=== PATIENT | female | born 1935 | race Caucasian/White ===

== ENCOUNTER 2018-04-20 14:19 | Inpatient (IN) | payer MEDICARE ==
[~2018-04-20] VITALS: Ht 152.4 cm; Wt 76.7 kg
[~2018-04-20 14:19] MED LIST: ASPIRIN81 M1 PO; MOTRIN800 MG PO; SYNTHROID,LEVO75 MCG PO; ZESTRIL5 MG PO
[2018-04-20 14:21] VITALS: BP 123/43
[2018-04-20 14:50] LABS: BASO % 0.1 % (0.0-1.0); EOS % 0.6 % (1.0-4.0); HEMATOCRIT 38.5 % (37.0-47.0); HEMOGLOBIN 12.6 g/dl (12.0-16.0); LYMPH # 0.7 10*3/uL (1.3-4.4); LYMPH % 9.9 % (27.0-41.0); MEAN CELL VOLUME 100.3 fl (81.0-99.0); MEAN CORPUSCULAR HGB 32.8 pg (27.0-31.0); MEAN CORPUSCULAR HGB CONC 32.7 g/dl (33.0-37.0); MEAN PLATELET VOLUME 9.2 fl (9.6-12.3); MONO # 0.5 10*3/uL (0.1-1.0); MONO % 7.2 % (3.0-9.0); NEUT # 5.7 10*3/uL (2.3-7.9); NEUT % 81.8 % (47.0-73.0); PLATELET COUNT AUTOMATED 166 10*3/uL (130-400); RED BLOOD COUNT 3.84 10*6/uL (4.10-5.10); RED CELL DISTRI WIDTH 13.1 % (0-14.5)
[2018-04-20 14:59] LABS: ACT PARTIAL THROMBO TIME 25.1 SECONDS (20.8-31.5)
[2018-04-20 15:04] LABS: ALBUMIN 3.9 gm/dl (3.1-4.5); CREATININE 1.14 mg/dL (0.55-1.02); POTASSIUM 4.4 mmol/L (3.5-5.1); TOTAL PROTEIN 7.1 gm/dL (6.4-8.2)
[2018-04-20 15:23] VITALS: BP 131/65
[2018-04-20 15:27] LABS: BILIRUBIN NEGATIVE (NEGATIVE); BLOOD NEGATIVE (NEGATIVE); CLARITY SL CLOUDY (CLEAR); COLOR YELLOW (YELLOW); GLUCOSE NEGATIVE (NEGATIVE); KETONE TRACE (NEGATIVE); LEUKO ESTERASE NEGATIVE (NEGATIVE); NITRITE NEGATIVE (NEGATIVE); SPECIFIC GRAVITY 1.025 (1.005-1.030)
[2018-04-20 15:35] LABS: BACTERIA 2+
[2018-04-20 15:37] LABS: MUCOUS 1+
[2018-04-20 17:25] VITALS: BP 134/78
--- NOTE | 2018-04-20 17:30 | NUR ---
Time: 1729 A 82 year old FEMALE admitted to 5E under services of NAVJOT YOUNGBLOOD DO. Pt. arrived via stretcher from ER. Chief complaint: ABD PAIN , FALLS . LEWIS MARMOLEJO
[2018-04-20] MEDS ORDERED: ARICEPT10 M1 PO (18:31)
[2018-04-20] MEDS ORDERED: VITAMIN D31000 UNI1 PO (18:32)
[2018-04-20] MEDS ORDERED: VITAMIN B-121000 MC2 PO (18:33)
[2018-04-20] MEDS ORDERED: ATORVASTATIN CA20 M1 PO (18:33)
[2018-04-20] MEDS ORDERED: SYNTHROID137 MCG PO (18:34)
[2018-04-21] VITALS: BP 127/63
[2018-04-21 06:23] LABS: BASO % 0.2 % (0.0-1.0); EOS # 0.1 10*3/uL (0.0-0.4); EOS % 1.9 % (1.0-4.0); HEMATOCRIT 34.9 % (37.0-47.0); HEMOGLOBIN 11.2 g/dl (12.0-16.0); LYMPH % 17.1 % (27.0-41.0); MEAN CELL VOLUME 101.2 fl (81.0-99.0); MEAN CORPUSCULAR HGB 32.5 pg (27.0-31.0); MEAN CORPUSCULAR HGB CONC 32.1 g/dl (33.0-37.0); MONO # 0.5 10*3/uL (0.1-1.0); MONO % 8.5 % (3.0-9.0); NEUT # 4.2 10*3/uL (2.3-7.9); NEUT % 72.1 % (47.0-73.0); PLATELET COUNT AUTOMATED 142 10*3/uL (130-400); RED BLOOD COUNT 3.45 10*6/uL (4.10-5.10); RED CELL DISTRI WIDTH 13.2 % (0-14.5); WHITE BLOOD COUNT 5.8 10*3/uL (4.8-10.8)
[2018-04-21 06:48] LABS: BUN 22 mg/dl (7-24); CHLORIDE 104 mmol/L (98-107); FREE T4 1.21 ng/dl (0.76-1.46); SODIUM 139 mmol/L (136-145)
--- NOTE | 2018-04-21 07:57 | NUR ---
PHYSICAL THERAPY Nursing screen noted. PT orders also recieved. Thank you. Daniella Fuentes,PT
[2018-04-21 08:00] VITALS: BP 117/56
--- NOTE | 2018-04-21 08:04 | NUR ---
Nursing screen and Occupational Therapy referral received. Thank you. Nayana Ordoñez OTR/l
--- NOTE | 2018-04-21 08:20 | NUR ---
PT RESTING IN CHAIR. NO DISTRESS NOTED. WILL MONITOR CALL LIGHT WITHIN REACH
--- NOTE | 2018-04-21 09:00 | NUR ---
Machine Strap Buckler in to talk to patient. Patient states lives at home alone with family checking in on her. There are 0 steps in the home. Physician: Dr. Te Arthur Pharmacy: [facility] services: none Patient's level of ADLs: MINIMAL ASSIST Patient has working utilities: yes DME: cane when out in public, walker Follow-up physician's appointment after d/c: will be made by the hospitalist nurse director upon discharge Does patient want to access PORTAL?: no Discharge plan discussed with patient. She has a hard time finding her words. Will call to speak with family to discuss discharge planning. ZAHIRA MORENO
--- NOTE | 2018-04-21 10:30 | NUR ---
PHYSICAL THERAPY PAtient evaluated in 5, full evaluation to follow. Continue with PT as per plan of care with fall, mod (A) and decreased safety precautions. MAy require SNF. PAient is high complexity via chart review, tests and evaluation: 24453. Thank you for this referral. Daniella Doe,PT
--- NOTE | 2018-04-21 10:40 | NUR ---
Spoke to daughter who is at the bedside. Daughter request referral to [facility]. kit planner notified.
--- NOTE | 2018-04-21 10:58 | NUR ---
Occupational Therapy evaluation completed on 5 with full eval to follow. Precautions include fall risk; bed/ personal alarm, h/o falls, impaired cognition including; disorientation to time, impaired STM, difficulty following simple commands at times. Patient is moderate complexity level 68521 via chart review, testing and evaluation. Recommend OT per pOC and SNF to enable best ability to function. Thank you for this referral. Nayana Ordoñez OTR/l
[2018-04-21 12:00] VITALS: BP 132/55
--- NOTE | 2018-04-21 12:45 | NUR ---
PHYSICAL THERAPY Patient seen this pm 1:1 for therapy visit and was sitting up in her bedside chair upon therapist arrival. Patient demonstrated several bouts of increased confusion this session and was joined by a family member this afternoon for entire treatment. Patient transfers sit to stand Min/Mod A and ambulates with use of wh walker, 50'x 1, CGA/Min, demonstrating an even stride, slow terese and unsteady gait pattern during 180 degree turns with POOR walker safety / navigation. Patient returned to bedside chair and peformed several additional sit to stand transfers, Min A, requiring v/c for proper hand placement prior to sitting down to avoid "plopping". Patient remained in bedside chair with call light, tray table and body alarm for safety awaiting lunch. Will continue per POC as tolerated, total treatment time 16 minutes. Horace Gaytan, ONLINE MARKETING MANAGER
--- NOTE | 2018-04-21 12:59 | NUR ---
Patient requesting referral to [facility]; contacted facility and faxed referral; will fax PT eval when available. Waiting on review/acceptance.
--- NOTE | 2018-04-21 15:50 | NUR ---
OT NOTE PATIENT SEEN 1:1 OT THIS PM. PATIENT COMPLETED 29 MINUTES OF OT. SON PRESENT AT BEGINNING OF SESSION. PATIENT IDENTIFIED BY NAME AND DATE OF THIS DATE. PATIENT COMPLETED SIT TO STAND FROM RECLINER MIN A AMBULATING WITH USE FWW TO BATHROOM MOD A TO MANAGE W/C ESPECIALLY WITH TURNS. PATIENT REQUIRED TACTILE CUE PROPER HAND PLACEMENT WITH TRANSFERS. COMPLETED TOILET TRANSFER MOD A EDUCATION USE GRAB BAR. COMPLETED TOILETING MIN A WITH VERBAL CUES TO INITAITE USE TOILET PAPER FOR HYGIENE. COMPLETED GROOMING STANDING AT SINK BRUSH TEETH AND COMB HAIR MIN A WITH VERBAL CUES SEQUENCING TASK. PATIENT COMPLETED SIT TO STAND FROM ARM CHAIR MOD A. COMPLETED FUNCTIONAL AMBULATION USE FWW TO RECLINER MIN A WITH VERBAL AND TACTILE USE PROPER USE FWW WITH TURNS. COMPLETED STAND TOLERANCE ACTIVITY USE FWW SUPPORT REACHING FOR ITEMS AND PLACING ON TRAY CGA AND STAND TOLERANCE 5 MINUTES THIS DATE. PATIENT REQUIRES VERBAL CUES SAFETY SECONDARY DECREASE SAFETY AWARENESS. PATIENT SEATED IN RECLINER WITH CALL LIGHT WITHIN REACH. RIO ANDERSON
[2018-04-21 16:00] VITALS: BP 105/59
--- NOTE | 2018-04-21 16:04 | NUR ---
PT RESTING IN CHAIR NO DISTRESS NOTED. WILL MONITOR
[2018-04-21 20:00] VITALS: BP 128/60
--- NOTE | 2018-04-21 21:00 | NUR ---
SLEEPING, AWAKENS EASILY. RESPIRATIONS EASY. LUNGS DIMINISHED, CLEAR. PULSE OX 95% RA. +3 BLE EDEMA. CALL LIGHT WITHIN REACH. NO VOICED COMPLAINTS. BED ALARM MAINTAINED FOR SAFETY
--- NOTE | 2018-04-21 23:00 | NUR ---
SLEEPING. BED ALARM MAINTAINED
[2018-04-22] VITALS: BP 141/63
--- NOTE | 2018-04-22 | NUR ---
SLEEPING. NO DISTRESS NOTED. RESPIRATIONS EASY. VSS. CALL LIGHT WITHIN REACH. BED ALARM MAINTAINED FOR SAFETY
--- NOTE | 2018-04-22 06:00 | NUR ---
24 HR chart check completed.
--- NOTE | 2018-04-22 06:00 | NUR ---
SLEPT THROUGHOUT NIGHT WITH NO DISTRESS NOTED. RESPIRATIONS EASY. CALL LIGHT WITHIN REACH. BED ALARM MAINTAINED
[2018-04-22 08:00] VITALS: BP 140/56
--- NOTE | 2018-04-22 08:08 | NUR ---
PT eval faxed to [facility], patient needs one more night stay, waiting on review/acceptance.
--- NOTE | 2018-04-22 08:40 | NUR ---
PATIENT AWAKE AND ALERT SITTING IN CHAIR. PATIENT IS ABLE TO TELL ME HER FIRST NAME BUT NOT HER LAST NAME. PATIENT CAN NOT TELL ME HER DATE OF OR WHERE SHE IS. PATIENT DENIES ANY COMPLAINTS AT THIS TIME. RESPERS NORMAL. HRR. CHAIR ALARM INTACT. CALL BAHENA WITHIN REACH.
--- NOTE | 2018-04-22 09:00 | NUR ---
Thread Spooler in to see patient. No new needs or request at this time. When medically stable and accepted she will be discharged to [facility]. train planner following.
--- NOTE | 2018-04-22 09:35 | NUR ---
PHYSICAL THERAPY Patient seen this am 1:1 for therapy visit and was sitting up in bedside chair upon therapist arrival. Patient reports no new c/o's this morning and presented with a little bit of confusion. Patient performed seated B LE therex, all planes, 2 x 10, requiring v/c to complete full AROM. Patient also performed several sit to stand transfers with use of wh walker standing support, Min A x 1. Patient returned to bedside chair and remained with call light, tray table, telephone and body alarm. Will continue per POC as tolerated, total treatment time 16 minutes. Horace Gaytan, SENIOR BUYER PLANNER
--- NOTE | 2018-04-22 10:00 | NUR ---
NURSE AIDE MADE RN AWARE THAT PATIENT HAS REDDENED AREA IN BUTT CRACK AREA. BLACHABLE. CREAM APPLIED.
--- NOTE | 2018-04-22 10:35 | NUR ---
DR FISHER MADE AWARE THAT PATIENT HAS REDDENED AREA ON BUTT CRACK THAT IS BLACHABLE. OK TO APPLY HYRDAGEL TO AREA.
--- NOTE | 2018-04-22 10:48 | NUR ---
Shift chart check completed.
--- NOTE | 2018-04-22 11:47 | NUR ---
Patient has been accepted to [facility], hospital exemption completed, requires a 3 night stay; can go on Saturday04/23/18 if medically stable for discharge.
[2018-04-22 12:00] VITALS: BP 128/56
--- NOTE | 2018-04-22 13:28 | NUR ---
OT NOTE Pt was seen this P.M. 1:1 for 20 minute OT session. Upon arrival pt [facility], pt identified by name and . Pt had no complaints at this time. Pt completed sit to stand transfer from chair level with modA and education for proper hand placement from chair level. Pt completed functional mobility into the bathroom with CGA and use of w/w. Pt had poor walker safety due to walking away without the walker, being impulsive, and having poor safety with the turns. Pt was educated throughout on walker safety. [facility] where she was left sitting upright with call light in hand, trya table in place, and body alarm on for safety. Continue with rec D.C plan to SNF. BRYNN Goldberg/Azalea
--- NOTE | 2018-04-22 13:36 | NUR ---
PHYSICAL THERAPY Patient presented to therapy in sitting position with report of feeling a little better and wanting to walk. Patient has chair alarm attached. Patient transferred STS with verbal cues for scooting forwards in chair and pushing off off armrests with hands. Patient required MIN A X 2 for STS transfer. Patient ambulated 200' x 1 with W/W with MIN A X 1 with verbal cues for upright posture and safe turns. Patient transferred back to sitting in bedside chair with MIN A X 1. Patient was left in bedside chair with call light within reach, chair alarm attached to patient, and and tray table near patient. THIS CISCO CERTIFIED NETWORK ASSOCIATE ATTACHED CHAIR ALARM TO PATIENT. CHAIR ALARM WAS TESTED TO ENSURE IT WAS WORKING PROPERLY. BRYNN ONEIL WITNESSED THE TESTING AND THE ALARM ATTACHMENT TO PATIENT. Patient was 1:1 with this CISCO CERTIFIED NETWORK ASSOCIATE for 15 minutes total. Patient is recommeneded to SNF upon discharge. MARTINEZ PANDA CISCO CERTIFIED NETWORK ASSOCIATE
[2018-04-22 16:00] VITALS: BP 116/51
--- NOTE | 2018-04-22 19:00 | NUR ---
PT AWAKE SITTING IN RECLINER CHAIR IN ROOM. NO C/O VOICED AT PRESENT TIME. PERSONAL ALARM ON PT. CALL LIGHT IN REACH.
[2018-04-22 20:00] VITALS: BP 124/57
[2018-04-23] VITALS: BP 141/58
--- NOTE | 2018-04-23 01:25 | NUR ---
Patient sleeping. Respirations relaxed and easy. Siderails up . [place] on. bed alarm on. HAI SULLIVAN
--- NOTE | 2018-04-23 06:39 | NUR ---
24 HR chart check completed.
[2018-04-23 08:00] VITALS: BP 136/70
--- NOTE | 2018-04-23 10:14 | NUR ---
PHYSICAL THERAPY Patient seen this am 1:1 for therapy visit and was resting supine in bed upon therapist arrival. Patient reports no new c/o's since last session and was very pleasant, but with a little confusion at times. Patient requires several v/c's to focus on task in completing all therapy task to improve overall safety awareness. Patient transfers supine to sit EOB with MOD A and sit stand Min A x 1. Patient ambulates with use of wh walker, 55'x 1, 40'x 1, CGA for straight line gait and CGA/Min for all turns due to unsteady gait pattern. Patient returned to bedside chair and remained there with call light, telephone and body alarm for safety. Will continue per POC as tolerated, total treatment time 17 minutes. Horace Gaytan, CASHIER CREDIT
[2018-04-23 12:00] VITALS: BP 118/63; BP 133/62
--- NOTE | 2018-04-23 13:30 | NUR ---
OT NOTE Pt was seen this P.M. 1:1 for 20 minute OT session. Upon arrival pt was sitting upright in recliner, pt identified by name and . Pt had no complaints at this time. Pt completed sit to stand transfer from chair level with modA and education for proper hand placement for increased I and improving technique. Pt completed functional mobility into the bathroom with CGA and use of w/w for UE support. Pt had poor walker safety throughout entire session due to walking away without her walker, staying outside the walker, and being impulsive at times. There pt transferred on to standard commode with Wendy and verbal/tactile prompts for safety alignment, clothing management completed with modA, and toilet hygiene completed with modA due to poor sequencing. Pt then transferred off standard commode with modA and use of grab bar. Pt then stood sink side with CGA wehile washing her hands with CGA and verbal prompts for walker safety. Functional mobility completed back to recliner where she was left with call light in hand, tray table in place, and body alarm activated for safety. Continue with rec D/C plan to SNF. JUSTIN Goldberg
[2018-04-23] MEDS ORDERED: SYNTHROID137 MCG PO (13:42)
--- NOTE | 2018-04-23 13:50 | NUR ---
PHYSICAL THERAPY Patient seen this pm 1:1 for therapy visit and was still sitting up in bedside chair upon therapist arrival. Patient was pleasantly confused this afternoon, transfering sit to stand, Min A, requiring v/c for proper hand placement. Patient has demonstrated increaed difficulty with safety carryover in regards to hand placement and wh walker safety during gait ex. Patient ambulates with use of wh walker, CGA/Min, 60'x 2, demonstrating slow, steady terese with bouts of unsteady gait pattern. Patient returned to bedside chair and remained with call light, telephone and body alarm for safety with mild fatigue. Will continue per POC as tolerated, total treatment time 17 minutes. Horace Gaytan, MANUFACTURING ELECTRICIAN
--- NOTE | 2018-04-23 14:31 | NUR ---
Patient daughter requesting patient transport via ambulance. Patient transport scheduled for 5:00 PM with [facility]. Nursing, ward maid and NH notified.
--- NOTE | 2018-04-23 14:33 | NUR ---
PT TO BE DISCHARGED AT 5PM AND TRANSPORTED TO [facility] BY [facility].
--- NOTE | 2018-04-23 15:46 | NUR ---
OCCUPATIONAL THERAPY CO-SIGN I approve of the Occupational Therapy notes written above. KEKE SANTIAGO OTR/Azalea
--- NOTE | 2018-04-23 16:38 | NUR ---
REORT GIVEN TO [facility] NURSE AT THIS TIME. DISCHARGE PACKET COMPLETE.
--- NOTE | 2018-04-23 17:05 | NUR ---
PT [facility]CHARG[facility] AT THIS TIME TO [facility]
--- NOTE | 2018-04-24 07:55 | NUR ---
PHYSICAL THERAPY CO-SIGN I approve of the Phyical Therapy notes written above. GIDEON COLE PT
[2018-09-11] MEDS ORDERED: METOPROLOL SUCC25 M2 PO (10:45)
[2018-09-11] MEDS ORDERED: CEFUROXIME AXE250 MG PO (10:46)
[2018-11-19] MEDS ORDERED: NAMENDA-5 PO (18:31)
[2018-11-19] MEDS ORDERED: MEMANTINE HCL10 MG PO (18:31)
[2018-11-19] MEDS ORDERED: EXELON13.3 MG/21 T (18:31)
[2018-11-19] MEDS ORDERED: DIVALPROEX SOD125 M1 PO (18:31)
== END 2018-04-23 17:19 | disposition other institution (70) | DRG 391 ==
LOC: ED 14:19 → EDHOLD 16:45 → 5E 16:45 → EDHOLD 16:45 → 5E 17:04
PROVIDERS: Emergency Medicine; Family Medicine; ADMIT Internal Medicine
DX: K52.9 Noninfective gastroenteritis and colitis, unspecified (principal); N17.0 Acute kidney failure with tubular necrosis; E86.0 Dehydration; F03.90 Unspecified dementia, unspecified severity, without behavioral disturbance, psychotic disturbance, mood disturbance, and anxiety; R29.6 Repeated falls; D72.810 Lymphocytopenia; E03.9 Hypothyroidism, unspecified; Z98.51 Tubal ligation status; Z82.49 Family history of ischemic heart disease and other diseases of the circulatory system; Z90.710 Acquired absence of both cervix and uterus; Z87.81 Personal history of (healed) traumatic fracture

== ENCOUNTER 2018-07-31 08:02 | Inpatient (IN) | payer MEDICARE, MEDICAID ==
[~2018-07-31] VITALS: Ht 160 cm; Wt 78.1 kg
--- NOTE | ~2018-07-31 | PR ---
[place], [place] PROGRESS NOTE NAME: ARMANDO GONZALEZ UNIT #: [id number] ROOM: 412 DOCTOR: HAM MARTI MD BIRTHDATE: [birth year] DOS: 08/03/2018 CARDIOLOGY FOLLOWUP NOTE REASON FOR VISIT: Cardiomyopathy, valvular heart disease. HISTORY OF PRESENT ILLNESS: The patient denies any chest pain, shortness of breath. She is hard of hearing, but no acute distress. No PND, no orthopnea, no palpitations. REVIEW OF SYSTEMS: Review of 8 systems negative; however, limited due to the patient's decreased hearing. RHYTHM STRIPS: The patient in sinus rhythm. PHYSICAL EXAMINATION: VITAL SIGNS: Blood pressure 150/74, pulse 86, respiratory rate 18, weight 78.1 kilos. GENERAL: Alert, comfortable, in no acute distress. HEENT: Pupils are round and equal. No jaundice. Tongue was moist. Pharynx clear. NECK: Supple, no distended neck veins, no carotid bruit. CHEST: Symmetrical, nontender. LUNGS: Clear to auscultation bilaterally. HEART: Regular rhythm, no S3, grade 2/6 systolic murmur. ABDOMEN: Obese, nontender. Bowel sounds normal. EXTREMITIES: Showed no edema. Distal pulses palpable. SKIN: Warm and dry. No cyanosis, no clubbing. RECTAL: Deferred. IMPRESSION: 1. Left ventricular dysfunction with no acute congestive heart failure. Continue low-dose beta blockers and add low dose MAURICIO, lisinopril 2.5 mg and monitor blood pressures and renal function. 2. Valvular heart disease, aortic stenosis and tricuspid regurgitation. 3. Hypertension. 4. Non-morbid obesity. 5. Urinary tract infection. 6. Recurrent falls. RECOMMENDATIONS: Continue current medications. Possibly, she will be discharged home today and we will follow her at [facility] and we will discuss outpatient Lexiscan stress test if the patient and her family are interested. No family at bedside at the time of examination. [place], [place] PROGRESS NOTE NAME: ARMANDO GONZALEZ UNIT #: [id number] ROOM: 412 DOCTOR: HAM MARTI MD BIRTHDATE: [birth year] HAM MARTI MD CM:ALEXEI [id number] HAM MARTI MD 08/04/18 0208 interface
--- NOTE | ~2018-07-31 | EKG ---
[place], [place] ELECTROCARDIOGRAM REPORT NAME: ARMANDO GONZALEZ UNIT #: [id number] ROOM: 412 DOCTOR: DWAIN DRAFT REPORT BIRTHDATE: [birth year] [facility] Test Date: 2018-07-31 Test Time: 08:35:36 Pat Name: ARMANDO GONZALEZ Department: Room: 412 Gender: F Milling Machine Set Up Operator: Rafia Mcdonnell : 1935 Requested By: PRISCILLA MENDOZA Order Number: [id number] Reading MD: Aric Garcia MD Measurements Intervals [place] Rate: 55 P: 38 ME: 212 QRS: -7 QRSD: 106 T: 246 QT: 491 QTc: 470 Interpretive Statements Sinus rhythm Borderline prolonged ME interval Probable LVH with secondary repol abnrm No previous ECG available for comparison Electronically Signed On 08-01-2018 6:53:38 PDT by Aric Garcia MD CM:EKGRPT:ELECTROCARDIOGRAM REPORT [id number] PRISCILLA AWAD DRAFT REPORT PRISCILLA MENDOZA DO
--- NOTE | ~2018-07-31 | CON ---
[place], [place] REPORT OF CONSULTATION NAME: ARMANDO GONZALEZ UNIT #: [id number] ROOM: 412 DOCTOR: FIGUEROA CAMACHOHAM BIRTHDATE: [birth year] DOS: 08/02/2018 CARDIOLOGY CONSULTATION NOTE REASON FOR CONSULTATION: Cardiomyopathy and valvular heart disease. HISTORY OF PRESENT ILLNESS: This is an 82-year-old patient who was admitted after an unwitnessed fall from home. She has a history of dementia and had a 2D echo that showed left ventricular dysfunction, mild valvular heart disease. Hence, Cardiology was consulted. Due to the patient's dementia and mental status, the history was obtained from the chart but she denies any chest pain or shortness of breath. No palpitation or dizziness. No family at bedside at the time of my examination. No fever or chills. REVIEW OF SYSTEMS: Review of 10 systems negative, but limited due to the patient's dementia. PAST MEDICAL HISTORY: 1. History of frequent falls. 2. Hypertension. 3. Hypothyroidism. 4. Generalized weakness. 5. Dementia. PAST SURGICAL HISTORY: History of hysterectomy. SOCIAL HISTORY: The patient does not smoke, does not drink and does not use illicit drugs. FAMILY HISTORY: Nil contributory due to her age. Father and mother from old age. ALLERGIES: No known drug allergies. HOME MEDICATIONS: Reviewed. PHYSICAL EXAMINATION: VITAL SIGNS: Blood pressure 129/81, pulse 70, respiratory rate is 18, weight 78.3 kilos, BMI 30.5. GENERAL: The patient is alert, in comfort, no acute distress. HEENT: Pupils are round and equal, no jaundice. Tongue was moist and pharynx clear. NECK: Supple, no distended neck veins, no carotid bruit. CHEST: Symmetrical, nontender. LUNGS: Few scattered rhonchi, but good air entry bilaterally. HEART: Regular rhythm, no S3, no palpable thrills. Grade 2/6 systolic ejection murmur as well as grade 1/6 systolic murmur. ABDOMEN: Benign, nontender. Bowel sounds normal. EXTREMITIES: Showed trace edema. Distal pulses palpable. SKIN: Warm and dry. No cyanosis, no clubbing. [place], [place] REPORT OF CONSULTATION NAME: ARMANDO GONZALEZ UNIT #: [id number] ROOM: [facility] DOCTOR: FIGUEROA CAMACHO,HAM BIRTHDATE: [birth year] RECTAL: Deferred. GENITOURINARY: Deferred. NEUROLOGIC: The patient is alert and oriented to place and person. REVIEW OF THE DIAGNOSTIC TESTS: Her EKG, labs reviewed. Echo from 08/01/2018 reviewed, which showed severe LVH, diastolic dysfunction, EF 35-40%, mild aortic stenosis and mild tricuspid regurgitation. IMPRESSION: 1. Cardiomyopathy, with no acute decompensated heart failure. 2. Valvular heart disease with mild aortic stenosis, mild tricuspid regurgitation by echo. 3. Severe left ventricular hypertrophy. 4. Mild pulmonary hypertension. 5. Urinary tract infection. 6. Dehydration. 7. Non-morbid obesity. 8. Recurrent falls. 9. Hypertension. RECOMMENDATIONS: 1. Add low-dose beta blockers for her cardiomyopathy and monitor heart rate and blood pressures. 2. If the blood pressures are stable, add low dose MAURICIO inhibitors. 3. No family at bedside. 4. No further cardiac testing at this time, but however, consider Lexiscan stress test on Saturday if the patient and her family are agreeable. HAM MARTI MD CM:CONSTR:REPORT OF CONSULTATION 1739 08/03/18 0305 interface
[~2018-07-31 08:02] MED LIST changes: +ARICEPT10 M1 PO; +ATORVASTATIN CA20 M1 PO; +SYNTHROID137 MCG PO; +VITAMIN B-121000 MC2 PO; +VITAMIN D31000 UNI1 PO
[2018-07-31 08:07] VITALS: BP 122/48
[2018-07-31 08:48] LABS: BASO % 0.4 % (0.0-1.0); EOS # 0.1 10*3/uL (0.0-0.4); EOS % 1.8 % (1.0-4.0); HEMATOCRIT 38.6 % (37.0-47.0); HEMOGLOBIN 12.5 g/dl (12.0-16.0); LYMPH # 0.9 10*3/uL (1.3-4.4); LYMPH % 18.1 % (27.0-41.0); MEAN CELL VOLUME 100.8 fl (81.0-99.0); MEAN CORPUSCULAR HGB 32.6 pg (27.0-31.0); MEAN CORPUSCULAR HGB CONC 32.4 g/dl (33.0-37.0); MEAN PLATELET VOLUME 9.9 fl (9.6-12.3); MONO # 0.4 10*3/uL (0.1-1.0); MONO % 7.5 % (3.0-9.0); NEUT # 3.6 10*3/uL (2.3-7.9); NEUT % 71.8 % (47.0-73.0); PLATELET COUNT AUTOMATED 154 10*3/uL (130-400); RED BLOOD COUNT 3.83 10*6/uL (4.10-5.10); RED CELL DISTRI WIDTH 14.6 % (0-14.5)
[2018-07-31 09:05] LABS: BILIRUBIN NEGATIVE (NEGATIVE); BLOOD NEGATIVE (NEGATIVE); CLARITY SL CLOUDY (CLEAR); COLOR YELLOW (YELLOW); GLUCOSE NEGATIVE (NEGATIVE); KETONE NEGATIVE (NEGATIVE); LEUKO ESTERASE 1+ (NEGATIVE); NITRITE NEGATIVE (NEGATIVE); UROBILINOGEN 0.2 E.U./dl (0.2-1.0)
[2018-07-31 09:06] LABS: ACT PARTIAL THROMBO TIME 27.3 SECONDS (20.8-31.5); ALBUMIN 3.9 gm/dl (3.1-4.5); ALKALINE PHOSPHATASE 115 U/L (45-117); BUN 34 mg/dl (7-24); CHLORIDE 102 mmol/L (98-107); CREATININE 0.95 mg/dL (0.55-1.02); INTERNATIONAL NORM RATIO 0.9 (2.0-3.5); LIPASE 259 U/L (73-393); POTASSIUM 4.5 mmol/L (3.5-5.1); SGOT/AST 35 IU/L (3-35); SGPT/ALT 43 U/L (12-78); SODIUM 137 mmol/L (136-145); TOTAL PROTEIN 7.1 gm/dL (6.4-8.2)
[2018-07-31 09:07] LABS: TROPONIN I 0.054 ng/ml (<0.045)
[2018-07-31 09:19] LABS: BACTERIA 2+; MUCOUS 1+; WBC 21-30 wbc/hpf (0-5)
[2018-07-31 09:51] VITALS: BP 113/56
[2018-07-31 11:30] VITALS: BP 127/65
[2018-07-31 16:00] VITALS: BP 121/53
[2018-07-31 20:00] VITALS: BP 129/71
[2018-08-01] VITALS: BP 136/56
[2018-08-01 06:21] LABS: BASO % 0.2 % (0.0-1.0); EOS # 0.1 10*3/uL (0.0-0.4); EOS % 2.5 % (1.0-4.0); HEMATOCRIT 33.6 % (37.0-47.0); HEMOGLOBIN 10.6 g/dl (12.0-16.0); LYMPH # 0.9 10*3/uL (1.3-4.4); LYMPH % 22.5 % (27.0-41.0); MEAN CELL VOLUME 100.3 fl (81.0-99.0); MEAN CORPUSCULAR HGB 31.6 pg (27.0-31.0); MEAN CORPUSCULAR HGB CONC 31.5 g/dl (33.0-37.0); MEAN PLATELET VOLUME 9.9 fl (9.6-12.3); MONO # 0.3 10*3/uL (0.1-1.0); MONO % 8.3 % (3.0-9.0); NEUT # 2.7 10*3/uL (2.3-7.9); NEUT % 66.3 % (47.0-73.0); PLATELET COUNT AUTOMATED 141 10*3/uL (130-400); RED BLOOD COUNT 3.35 10*6/uL (4.10-5.10); RED CELL DISTRI WIDTH 14.7 % (0-14.5); WHITE BLOOD COUNT 4.1 10*3/uL (4.8-10.8)
[2018-08-01 06:40] LABS: ACT PARTIAL THROMBO TIME 27.2 SECONDS (20.8-31.5); BUN 26 mg/dl (7-24); CHLORIDE 108 mmol/L (98-107); CREATININE 0.74 mg/dL (0.55-1.02); POTASSIUM 4.5 mmol/L (3.5-5.1); SODIUM 140 mmol/L (136-145)
[2018-08-01 07:50] LABS: VITAMIN D, 25-HYDROXY 34.6 ng/mL (30-100)
[2018-08-01 08:00] VITALS: BP 138/60
[2018-08-01 12:00] VITALS: BP 136/78
[2018-08-01 16:00] VITALS: BP 124/44
[2018-08-01 20:00] VITALS: BP 130/63
[2018-08-02] VITALS: BP 129/81
[2018-08-02 06:29] LABS: BASO % 0.5 % (0.0-1.0); EOS # 0.1 10*3/uL (0.0-0.4); EOS % 1.6 % (1.0-4.0); HEMATOCRIT 36.4 % (37.0-47.0); HEMOGLOBIN 11.6 g/dl (12.0-16.0); LYMPH # 1.4 10*3/uL (1.3-4.4); LYMPH % 23.9 % (27.0-41.0); MEAN CORPUSCULAR HGB 31.9 pg (27.0-31.0); MEAN CORPUSCULAR HGB CONC 31.9 g/dl (33.0-37.0); MEAN PLATELET VOLUME 10.6 fl (9.6-12.3); MONO # 0.5 10*3/uL (0.1-1.0); MONO % 8.6 % (3.0-9.0); NEUT # 3.7 10*3/uL (2.3-7.9); NEUT % 65.2 % (47.0-73.0); PLATELET COUNT AUTOMATED 149 10*3/uL (130-400); RED BLOOD COUNT 3.64 10*6/uL (4.10-5.10); RED CELL DISTRI WIDTH 14.6 % (0-14.5); WHITE BLOOD COUNT 5.7 10*3/uL (4.8-10.8)
[2018-08-02 06:53] LABS: BUN 24 mg/dl (7-24); CHLORIDE 104 mmol/L (98-107); CREATININE 0.83 mg/dL (0.55-1.02); POTASSIUM 4.4 mmol/L (3.5-5.1); SODIUM 139 mmol/L (136-145)
[2018-08-02 08:00] VITALS: BP 110/80; BP 152/78
[2018-08-02 12:00] VITALS: BP 118/48
[2018-08-02 16:00] VITALS: BP 128/60
[2018-08-02 20:00] VITALS: BP 135/74
[2018-08-03] VITALS: BP 157/74
[2018-08-03 06:08] LABS: BASO % 0.3 % (0.0-1.0); EOS # 0.1 10*3/uL (0.0-0.4); EOS % 1.2 % (1.0-4.0); HEMATOCRIT 36.8 % (37.0-47.0); HEMOGLOBIN 11.8 g/dl (12.0-16.0); LYMPH # 1.3 10*3/uL (1.3-4.4); LYMPH % 16.8 % (27.0-41.0); MEAN CELL VOLUME 99.5 fl (81.0-99.0); MEAN CORPUSCULAR HGB 31.9 pg (27.0-31.0); MEAN CORPUSCULAR HGB CONC 32.1 g/dl (33.0-37.0); MEAN PLATELET VOLUME 10.6 fl (9.6-12.3); MONO # 0.7 10*3/uL (0.1-1.0); MONO % 9.2 % (3.0-9.0); NEUT # 5.5 10*3/uL (2.3-7.9); NEUT % 72.2 % (47.0-73.0); PLATELET COUNT AUTOMATED 147 10*3/uL (130-400); RED CELL DISTRI WIDTH 14.6 % (0-14.5); WHITE BLOOD COUNT 7.6 10*3/uL (4.8-10.8)
[2018-08-03 06:33] LABS: BUN 23 mg/dl (7-24); CHLORIDE 102 mmol/L (98-107); CREATININE 0.77 mg/dL (0.55-1.02); POTASSIUM 4.2 mmol/L (3.5-5.1); SODIUM 138 mmol/L (136-145)
[2018-08-03 08:00] VITALS: BP 132/81
[2018-08-03] MEDS ORDERED: METOPROLOL SUCC25 M2 PO (08:30)
[2018-08-03] MEDS ORDERED: LISINOPRIL2.5 MG PO (08:30)
[2018-09-11] MEDS ORDERED: METOPROLOL SUCC25 M2 PO (10:45)
[2018-09-11] MEDS ORDERED: CEFUROXIME AXE250 MG PO (10:46)
[2018-11-19] MEDS ORDERED: DIVALPROEX SOD125 M1 PO (18:31)
[2018-11-19] MEDS ORDERED: MEMANTINE HCL10 MG PO (18:31)
[2018-11-19] MEDS ORDERED: NAMENDA-5 PO (18:31)
[2018-11-19] MEDS ORDERED: EXELON13.3 MG/21 T (18:31)
== END 2018-08-03 09:20 | disposition other institution (70) | DRG 640 ==
LOC: ED 08:02 → EDHOLD 09:50 → 4E 09:50
PROVIDERS: Emergency Medicine; Family Medicine; Student in an Organized Health Care Education/Training Program; ADMIT Internal Medicine
DX: E86.0 Dehydration (principal); G93.41 Metabolic encephalopathy; N39.0 Urinary tract infection, site not specified; I50.40 Unspecified combined systolic (congestive) and diastolic (congestive) heart failure; I42.9 Cardiomyopathy, unspecified; E03.9 Hypothyroidism, unspecified; I27.20 Pulmonary hypertension, unspecified; E66.9 Obesity, unspecified; I11.0 Hypertensive heart disease with heart failure; I35.0 Nonrheumatic aortic (valve) stenosis; I07.1 Rheumatic tricuspid insufficiency; R31.9 Hematuria, unspecified; F03.90 Unspecified dementia, unspecified severity, without behavioral disturbance, psychotic disturbance, mood disturbance, and anxiety; W19.XXXA Unspecified fall, initial encounter; Y93.89 Activity, other specified; Y99.8 Other external cause status; Z90.710 Acquired absence of both cervix and uterus; Z98.51 Tubal ligation status; Z79.899 Other long term (current) drug therapy; Y92.129 Unspecified place in nursing home as the place of occurrence of the external cause; Z68.30 Body mass index [BMI] 30.0-30.9, adult

== ENCOUNTER 2018-11-08 06:23 | Emergency (ER) | payer MEDICARE, MEDICAID ==
[~2018-11-08] VITALS: Wt 61.4 kg
[~2018-11-08 06:23] MED LIST changes: +CEFUROXIME AXE250 MG PO; +LISINOPRIL2.5 MG PO; +METOPROLOL SUCC25 M2 PO
[2018-11-08 07:26] LABS: BASO % 0.2 % (0.0-1.0); EOS % 0.8 % (1.0-4.0); HEMOGLOBIN 10.6 g/dl (12.0-16.0); LYMPH # 0.8 10*3/uL (1.3-4.4); LYMPH % 15.5 % (27.0-41.0); MEAN CELL VOLUME 98.2 fl (81.0-99.0); MEAN CORPUSCULAR HGB 31.5 pg (27.0-31.0); MEAN CORPUSCULAR HGB CONC 32.1 g/dl (33.0-37.0); MEAN PLATELET VOLUME 10.4 fl (9.6-12.3); MONO # 0.4 10*3/uL (0.1-1.0); MONO % 8.8 % (3.0-9.0); NEUT # 3.7 10*3/uL (2.3-7.9); NEUT % 74.5 % (47.0-73.0); PLATELET COUNT AUTOMATED 140 10*3/uL (130-400); RED BLOOD COUNT 3.36 10*6/uL (4.10-5.10); RED CELL DISTRI WIDTH 14.6 % (0-14.5)
[2018-11-08 07:41] LABS: ALBUMIN 3.5 gm/dl (3.1-4.5); CREATININE 1.07 mg/dL (0.55-1.02); POTASSIUM 4.2 mmol/L (3.5-5.1); TOTAL PROTEIN 6.7 gm/dL (6.4-8.2)
[2018-11-08 07:44] LABS: BILIRUBIN NEGATIVE (NEGATIVE); BLOOD NEGATIVE (NEGATIVE); CLARITY CLEAR (CLEAR); COLOR YELLOW (YELLOW); GLUCOSE NEGATIVE (NEGATIVE); KETONE NEGATIVE (NEGATIVE); LEUKO ESTERASE NEGATIVE (NEGATIVE); NITRITE NEGATIVE (NEGATIVE); PH 6.5 (5.0-9.0); UROBILINOGEN 0.2 E.U./dl (0.2-1.0)
[2018-11-08 08:05] LABS: BACTERIA TRACE; WBC 0-2 wbc/hpf (0-5)
[2018-11-08] MEDS ORDERED: LEVOTHYROXINE137 MCG PO (14:15)
[2018-11-08] MEDS ORDERED: LASIX20 MG PO (14:21)
[2018-11-08] MEDS ORDERED: POTASSIUM CHLO20 ME3 PO (14:24)
[2018-11-08] MEDS ORDERED: COLACE100 MG PO (14:25)
[2018-11-19] MEDS ORDERED: NAMENDA-5 PO (18:31)
[2018-11-19] MEDS ORDERED: DIVALPROEX SOD125 M1 PO (18:31)
[2018-11-19] MEDS ORDERED: MEMANTINE HCL10 MG PO (18:31)
[2018-11-19] MEDS ORDERED: EXELON13.3 MG/21 T (18:31)
== END 2018-11-08 13:20 | disposition home health service (06) ==
LOC: ED 06:23
PROVIDERS: Emergency Medicine
DX: F63.81 Intermittent explosive disorder (principal); F03.90 Unspecified dementia, unspecified severity, without behavioral disturbance, psychotic disturbance, mood disturbance, and anxiety; E03.9 Hypothyroidism, unspecified; I11.0 Hypertensive heart disease with heart failure; I50.40 Unspecified combined systolic (congestive) and diastolic (congestive) heart failure; Z90.710 Acquired absence of both cervix and uterus; Z79.2 Long term (current) use of antibiotics; Z79.899 Other long term (current) drug therapy

== ENCOUNTER 2018-11-23 02:57 | Inpatient (IN) | payer MEDICARE, MEDICAID ==
[2018-11-23] VITALS (7 sets, daily range): BP systolic 90–123; BP diastolic 46–56
[~2018-11-23] VITALS: Ht 157.4 cm; Wt 70.1 kg
--- NOTE | ~2018-11-23 | EKG ---
[place], [place] ELECTROCARDIOGRAM REPORT NAME: ARMANDO GONZALEZ UNIT #: [id number] ROOM: 409 DOCTOR: EPIPHANY DRAFT REPORT BIRTHDATE: [birth year] [facility] Test Date: 2018-11-23 Test Time: 03:17:07 Pat Name: ARMANDO GONZALEZ Department: Room: 409 Gender: F Pressfitter: : 1935 Requested By: ELIZABET VELA Order Number: [id number] Reading MD: Matti Bull MD Measurements Intervals [place] Rate: 58 P: 0 DE: 149 QRS: 1 QRSD: 101 T: 246 QT: 457 QTc: 449 Interpretive Statements Sinus bradycardia Abnormal R-wave progression, early transition Diffuse T wave changes consider ischemia Electronically Signed On 11-23-2018 8:27:16 PDT by Matti Bull MD CM:EKGRPT:ELECTROCARDIOGRAM REPORT [id number] ELIZABET VELA MD EPIPHANY DRAFT REPORT ELIZABET VELA MD
[~2018-11-23 02:57] MED LIST changes: +COLACE100 MG PO; +DIVALPROEX SOD125 M1 PO; +EXELON13.3 MG/21 T; +LASIX20 MG PO; +LEVOTHYROXINE137 MCG PO; +MEMANTINE HCL10 MG PO; +NAMENDA-5 PO; +POTASSIUM CHLO20 ME3 PO
[2018-11-23 03:46] LABS: HEMATOCRIT 36.5 % (37.0-47.0); HEMOGLOBIN 11.4 g/dl (12.0-16.0); MEAN CELL VOLUME 101.4 fl (81.0-99.0); MEAN CORPUSCULAR HGB 31.7 pg (27.0-31.0); MEAN CORPUSCULAR HGB CONC 31.2 g/dl (33.0-37.0); MEAN PLATELET VOLUME 11.1 fl (9.6-12.3); PLATELET COUNT AUTOMATED 109 10*3/uL (130-400); RED CELL DISTRI WIDTH 15.2 % (0-14.5); WHITE BLOOD COUNT 13.8 10*3/uL (4.8-10.8)
[2018-11-23 04:02] LABS: ACT PARTIAL THROMBO TIME 26.4 SECONDS (20.0-32.1); INTERNATIONAL NORM RATIO 0.9 (2.0-3.5)
[2018-11-23 04:09] LABS: CREATININE 1.09 mg/dL (0.55-1.02); TOTAL PROTEIN 6.9 gm/dL (6.4-8.2)
[2018-11-23 04:15] LABS: PLATELET SUFFICIENCY LOW (NORMAL); TOTAL CELLS COUNTED 100 #CELLS
[2018-11-23 05:15] LABS: BILIRUBIN NEGATIVE (NEGATIVE); BLOOD NEGATIVE (NEGATIVE); CLARITY CLEAR (CLEAR); COLOR YELLOW (YELLOW); GLUCOSE NEGATIVE (NEGATIVE); KETONE NEGATIVE (NEGATIVE); LEUKO ESTERASE TRACE (NEGATIVE); NITRITE NEGATIVE (NEGATIVE); PH 6.5 (5.0-9.0); SPECIFIC GRAVITY 1.015 (1.005-1.030)
[2018-11-23 05:26] LABS: WBC 16-20 wbc/hpf (0-5); YEAST TRACE
--- NOTE | 2018-11-23 05:35 | NUR ---
DR JEONG DECREASED 02 TO 2L PER NC. SHORTLY AFTER PT BECAME SOB AND SPO2 BEGAN DROPPING FROM 100 TO 94. O2 INCREASED TO 4L PER NC, SPO2 INCREASED TO 100%. PT MORE COMFORTABLE. FAMILY AT BEDSIDE.
--- NOTE | 2018-11-23 06:20 | NUR ---
A 83, admitted to , under the services of PRISCILLA Dorsey DO with a diagnosis of RESPIRATORY FAILURE, SEPSIS. Chief complaint is SOB. Patient arrived via bed from ER. Monitor applied. Initial assessment completed. Vital signs taken and recorded. PRISCILLA DORSEY DO notified of admission to the unit. Orders received. See assessment for past medical history, medications and allergies. Patient and/or family oriented to unit. [facility] visitation policy reviewed. Clothing/patient valuable form completed. PROSPER INGRAM
[2018-11-23] MEDS ORDERED: RIVASTIGMINE TAR6 M1 PO (06:43)
[2018-11-23] MEDS ORDERED: DEPAKOTE SPRIN125 MG PO (06:48)
--- NOTE | 2018-11-23 07:15 | NUR ---
Pts oxygen was decreased from 4L NC to 2L NC. SpO2 was 100%. Pt also suctioned in the back of the throat for a moderate amount of thick, creamy secretions. Worked with pt to encourage her to cough. Pt does not use FV well. Tolerated suctioning well.
--- NOTE | 2018-11-23 07:44 | NUR ---
HOSPITALIST NOTIFIED THAT PT MED REC IS UP TO DATE PER PAPERWORK GIVEN BY [facility].
--- NOTE | 2018-11-23 11:35 | NUR ---
PHYSICAL THERAPY PT EVAL COMPLETED TODAY ON LEVEL 4: FULL EVALUATION TO FOLLOW. RECOMMEND PT WHILE HERE TO ADDRESS DECREASED STRENGTH,BALANCE, ENDURANCE AND THUS DECREASED FUNCTIONAL MOBILITY. PT EVAL IS MODERATE COMPLEXITY BASED ON CHART REVIEW, TEST RESULTS AND EVALUATION: [id number]. D/C REC: RETURN TO THE MEDICAL C[facility] FOR SNF WHEN MEDICALLY STABLE. THANK YOU FOR REFERRAL TAON CARR PT
--- NOTE | 2018-11-23 20:30 | NUR ---
PT AWAKE IN BED. PT ALERT TO SELF ONLY. DIFFICULTY ADMINISTERING PO MEDS WHOLE IN APPLESAUCE. PT TOOK MEDS AFTER MUCH ENCOURAGEMENT. PT STATES SHE JUST WANTS TO GO TO SLEEP. TV AND LIGHTS TURNED OFF. BED IN LOW POSITION W/WHEELS LOCKED, BED ALARM ON, AND CALL LIGHT IN REACH.
[2018-11-24] VITALS: BP 113/50
[2018-11-24 06:40] LABS: BASO % 0.2 % (0.0-1.0); EOS % 0.1 % (1.0-4.0); HEMATOCRIT 29.1 % (37.0-47.0); HEMOGLOBIN 9.1 g/dl (12.0-16.0); LYMPH # 0.7 10*3/uL (1.3-4.4); LYMPH % 7.4 % (27.0-41.0); MEAN CELL VOLUME 100.7 fl (81.0-99.0); MEAN CORPUSCULAR HGB 31.5 pg (27.0-31.0); MEAN CORPUSCULAR HGB CONC 31.3 g/dl (33.0-37.0); MEAN PLATELET VOLUME 11.2 fl (9.6-12.3); MONO # 0.5 10*3/uL (0.1-1.0); MONO % 5.7 % (3.0-9.0); NEUT # 8.1 10*3/uL (2.3-7.9); PLATELET COUNT AUTOMATED 92 10*3/uL (130-400); RED BLOOD COUNT 2.89 10*6/uL (4.10-5.10); RED CELL DISTRI WIDTH 15.2 % (0-14.5); WHITE BLOOD COUNT 9.4 10*3/uL (4.8-10.8)
[2018-11-24 06:58] LABS: CHLORIDE 103 mmol/L (98-107); CHOLESTEROL 148 mg/dL (<200); CREATININE 0.92 mg/dL (0.55-1.02); HDL CHOLESTEROL 63 mg/dl (40-60); LDL CHOLESTEROL 72 mg/dL (9-159); PHOSPHOROUS 3.6 mg/dL (2.5-4.9); SODIUM 140 mmol/L (136-145); TRIGLYCERIDES 64 mg/dl (<150); VLDL CHOLESTEROL 13 mg/dL (6-40)
[2018-11-24 07:11] LABS: BUN 29 mg/dl (7-24)
[2018-11-24 07:15] LABS: VITAMIN D, 25-HYDROXY 33.9 ng/mL (30-100)
[2018-11-24 08:00] VITALS: BP 99/40
--- NOTE | 2018-11-24 08:00 | NUR ---
REPORT RECIEVED FROM [facility]. PATIENT SLEEPING BUT AWAKENS EASILY. NO S/S OF DISTRESS OR SOB. BED IN LOWEST LOCKED POSITION AND CALL LIGHT WITHIN REACH.
--- NOTE | 2018-11-24 08:20 | NUR ---
PHYSICAL THERAPY Patient seen this am 1;1 for therapy visit and was supine in bed upon therapist arrival. Patient was very pleasant this morning transfering supine to sit EOB with MAX A x 1. Patient presented with IV treatment and tolerated static EOB sit x 4 minutes. Patient also able to complete several seated therex, including marching, LAQ and ankle pumps x 10 reps each without c/o. Patient then transfers sit to stand MOD/MENTAL RETARDATION NURSE and side steps to L x 4 steps to set up bed transfer. Patient returned to supine in bed and remained with call light, tray table and bed alarm for safety. Will continue per POC as tolerated, total treatment time 16 minutes. Horace Gaytan, BUILDING ARCHITECTURAL DESIGNER
--- NOTE | 2018-11-24 09:30 | NUR ---
Carbon Sequestration Plant Operator in to talk to patient. Patient states lives at [facility] with resident. There are no steps in the home. Physician: job Pharmacy: per [facility] Home health services: none Patient's level of ADLs: MINIMAL ASSIST Patient has working utilities: all working DME: per [facility] Follow-up physician's appointment after d/c: will be made by hospitalist nurse director upon discharge Does patient want to access PORTAL?: no Discharge plan discussed with patient, she is a shelter resident at [facility] and will return when medically stable, case management/enterprise resource planner will follow. JULES HAYWARD
--- NOTE | 2018-11-24 10:00 | NUR ---
PATIENT AWAKE AND ALERT. PLEASANT AND COOPERATIVE WITH ASSESSMENT. ALL MEDS WERE GIVEN CRUSHED IN PUDDING AND PATIENT TOLERATED WELL. 75% OF BREAKFAST WAS CONSUMED. NO S/S OF DISTRESS, NO STATED COMPLAINTS. BED IN LOWEST LOCKED POSITION AND CALL LIGHT WITHIN REACH.
[2018-11-24 12:00] VITALS: BP 98/62
--- NOTE | 2018-11-24 12:33 | NUR ---
SPEECH PATHOLOGY Clinical swallowing evaluation completed as per orders. Patient was admitted from [place] with sepsis, SOB and hypoxia. History includes dementia, HTN, CHF, falls, generalized weakness, malnutrition. Recent CXR was positive for pneumonia. She receives a regular diet and thin liquids. Patient was cooperative for assessment with confusion displayed. She had difficulty following commands at times. She was assessed with coarse solid and thin liquid taken by cup and straw. With coarse solid, she displayed difficulty biting and slow mastication. One instance of coughing was displayed with thin liquid by straw. Recommend patient receive a mechanical soft diet and thin liquid. Recommend thin liquid by cup. Also recommend upright positioning, small bites and sips and alternating liquid and solid. Follow up therapy is recommended to ensure safe tolerance of diet through education and adherence to safe swallow precautions. Results and octavio. were shared with patient's nurse who verbalized understanding. Refer to report in [facility] for further information. Thank you for this referral. JONATHAN REEVES MSCCC-SLIVER CHOPPER
--- NOTE | 2018-11-24 15:07 | NUR ---
Occupational Therapy evaluation offered but patient declined. She was sleepy and agreed to OT at another date. Nayana Ordoñez OTR/l
[2018-11-24 16:00] VITALS: BP 108/40
--- NOTE | 2018-11-24 17:49 | NUR ---
IN TO ROOM. PATIENT SLEEPING BUT AWAKENS UPON ENTERING. NO STATED COMPLAINTS AT THIS TIME. NO S/S OF DISTRESS OR SOB. RESPIRATIONS EASY AND REGULAR ON ROOM AIR. BED IN LOWEST LOCKED POSITION AND CALL LIGHT WITHIN REACH.
--- NOTE | 2018-11-24 18:32 | NUR ---
FAMILY CALLED IN TO CHECK ON PATIENT. NO PASSWORD WAS SET UP. FAMILY EDUCATED ON THE NEED FOR A PASSWORD AND WERE ADVISED TO SET ON UP THE NEXT TIME THEY COME TO THE HOSPITAL. NO INFORMATION WAS RELEASED.
--- NOTE | 2018-11-24 19:34 | NUR ---
PATIENT RESTING IN BED WITH NO S/S OF DISTRESS. BED IN LOWEST POSITION, BED ALARM ON, CALL LIGHT IN REACH
[2018-11-24 20:00] VITALS: BP 110/46
--- NOTE | 2018-11-24 22:42 | NUR ---
DR STILES AWARE OF PATIENT YELLING, MULTIPLE ATTEMPTS TO GET OUT OF BED, AND SCREAMING AT STAFF. STATES SHE WILL PUT IN ORDERS
--- NOTE | 2018-11-24 22:54 | NUR ---
IV ATIVAN GIVEN PER ORDER. PATIENT STATING "SIT DOWN, GET OUT OF HERE, THIS IS [facility]!" CONFUSED TO TIME AND PLACE. REFUSES TO STATE NAME. NAME BAND CHECKED FOR ADMINISTRATION OF MEDICATION. PATIENT RESTING WITH EYES CLOSED WITHIN 5 MINUTES OF MEDICATION BEING GIVEN. RESPS EASY AND REGULAR. BED ALARM ON, CALL LIGHT IN REACH, BED IN LOWEST POSITION
[2018-11-25] VITALS (7 sets, daily range): BP systolic 97–131; BP diastolic 46–84
--- NOTE | 2018-11-25 01:45 | NUR ---
PATIENT RESTING IN BED WITH NO S/S OF DISTRESS. BED IN LOWEST POSITION, CALL LIGHT IN REACH, BED ALARM ON
[2018-11-25 06:42] LABS: BUN 26 mg/dl (7-24); CHLORIDE 104 mmol/L (98-107); CREATININE 0.93 mg/dL (0.55-1.02); POTASSIUM 4.6 mmol/L (3.5-5.1); SODIUM 141 mmol/L (136-145)
[2018-11-25 06:50] LABS: BASO % 0.2 % (0.0-1.0); EOS # 0.1 10*3/uL (0.0-0.4); EOS % 0.6 % (1.0-4.0); HEMATOCRIT 29.1 % (37.0-47.0); HEMOGLOBIN 9.1 g/dl (12.0-16.0); LYMPH # 0.9 10*3/uL (1.3-4.4); MEAN CELL VOLUME 99.7 fl (81.0-99.0); MEAN CORPUSCULAR HGB 31.2 pg (27.0-31.0); MEAN CORPUSCULAR HGB CONC 31.3 g/dl (33.0-37.0); MONO # 0.7 10*3/uL (0.1-1.0); MONO % 7.5 % (3.0-9.0); NEUT # 7.5 10*3/uL (2.3-7.9); NEUT % 80.3 % (47.0-73.0); PLATELET COUNT AUTOMATED 96 10*3/uL (130-400); RED BLOOD COUNT 2.92 10*6/uL (4.10-5.10); RED CELL DISTRI WIDTH 15.1 % (0-14.5); WHITE BLOOD COUNT 9.4 10*3/uL (4.8-10.8)
--- NOTE | 2018-11-25 07:45 | NUR ---
Updated clinicals faxed to [facility] for review. Patient is detention, ok to return when medically stable.
--- NOTE | 2018-11-25 09:00 | NUR ---
PATIENT UNABLE TO BE AWAKENED AT THIS TIME. VITALS STABLE. RESPIRATIONS EASY AND REGULAR. PULSE OX 94% ON ROOM AIR. WILL CONTINUE TO MONITOR.
--- NOTE | 2018-11-25 09:11 | NUR ---
SPEECH PATHOLOGY Treatment unable to be conducted this am. [facility] She is currently sound asleep and unable to awaken to attempt breakfast. Will attempt treatment at a later time. JONATHAN REEVES MSCCC-SURGICAL SERVICES COORDINATOR
--- NOTE | 2018-11-25 10:00 | NUR ---
UNABLE TO ADMINISTER MEDS AT THIS TIME D/T PATIENT SLEEPING. PT DID NOT WAKE UP WITH CALLING OF HER NAME OR GENTLE SHAKING. VITALS STABLE AND RESPIRATIONS EASY AND REGULAR. PULSE OX WITHIN NORMAL LIMITS. BED IN LOWEST LOCKED POSIITON AND CALL LIGHT WITHIN REACH. WILL CONTINUE TO MONITOR.
--- NOTE | 2018-11-25 10:50 | NUR ---
DR HINSON NOTIFIED OF PATIENT NOT RECIEVING MORNING MEDS. VITALS ALL STABLE. WILL ADMINISTER MEDS WHEN SAFE FOR PATIENT TO SWALLOW EFFECTIVLY. BED IN LOWEST LOCKED POSTION AND CALL LIGHT WITHIN REACH.
--- NOTE | 2018-11-25 13:53 | NUR ---
PHYSICAL THERAPY Patient presented to therapy in supine with no concerns or complaints. Patient is very lethargic. Patient was identified by name and . Patient gives informed consent. Patient performed supine to sitting transfer to EOB with MAX A X 2. Patient performed sitting at EOB with CGA X 1 to prevent leaning forwards and to the R side. Patient sit to stand transfer from EOB with MAX A X 2. Patient required verbal cues for pushing off of the EOB with hands. Patient stood at Walker for 1 minute with CGA to MIN A X 1 until knees buckled under her and she had to sit on EOB. Patient attempted 2nd sit to stand and stood with MAX A X 2 , but she couldn't maintain standing position due to her knees buckling. Patient transferred back to supine in bed with MAX A X 2. Patient was left in supine with head of bed elevated, call light within reach, and bed alarm activated. Patient was 1:1 with this ELIGIBILITY MANAGER for 20 minutes total. MARTINEZ PANDA ELIGIBILITY MANAGER
--- NOTE | 2018-11-25 14:31 | NUR ---
Nursing reports that patient was having behaviors last night and was given ativan and has not been out of bed today or awake enough for medication. OTR will attempt at another date. Nayana Ordoñez OTR/L
--- NOTE | 2018-11-25 14:32 | NUR ---
SPEECH PATHOLOGY This pm, patient remained asleep and did not arouse to auditory stimulation and was therefore unsafe to attempt po feeding. Will attempt again at a later time. JONATHAN REEVES MSCCC-LIBRARY HELPER
--- NOTE | 2018-11-25 18:00 | NUR ---
PT RESTING QUIETLY IN BED W/EYES CLOSED. AWAKENS TO VERBAL STIMULI. DINNER ORDERED FOR PT. PT DRANK SMALL AMOUNT OF WATER. CLAUDIA W/EQUAL HAND GRASPS. SAT 92% RA. WILL CONTINUE TO MONITOR. BED ALARM ON W/WHEELS LOCKED AND CALL LIGHT IN REACH.
--- NOTE | 2018-11-25 18:30 | NUR ---
FAMILY AT BEDSIDE. FAMILY ATTEMPTED TO FEED PT DINNER. PT ATE FEW BITES OF PIE, DRANK TWO CARTONS OF MILK. WILL ATTEMPT TO FEED PT AT A LATER TIME.
--- NOTE | 2018-11-25 22:00 | NUR ---
ORDERED MEDICATIONS GIVEN AT THIS TIME WITHOUT INCIDENT. DENIED ANY PAIN, NO DISTRESS NOTED AT THIS TIME. CALL LIGHT WITHIN REACH.
[2018-11-26] VITALS: BP 109/58
--- NOTE | 2018-11-26 07:00 | NUR ---
ARRIVED ON SHIFT,PATIENT RESTING QUIETLY WITH EYES CLOSED, RESP EVEN AND NON-LABORED. PATIENT DID NOT AWAKEN DURING BEDSIDE REPORT, UPDATED WHITE BOARD.
[2018-11-26 07:25] LABS: BASO % 0.4 % (0.0-1.0); EOS # 0.1 10*3/uL (0.0-0.4); EOS % 0.8 % (1.0-4.0); HEMATOCRIT 30.5 % (37.0-47.0); HEMOGLOBIN 9.8 g/dl (12.0-16.0); LYMPH # 0.9 10*3/uL (1.3-4.4); LYMPH % 12.6 % (27.0-41.0); MEAN CELL VOLUME 99.7 fl (81.0-99.0); MEAN CORPUSCULAR HGB CONC 32.1 g/dl (33.0-37.0); MEAN PLATELET VOLUME 10.9 fl (9.6-12.3); MONO # 0.5 10*3/uL (0.1-1.0); MONO % 7.4 % (3.0-9.0); NEUT # 5.6 10*3/uL (2.3-7.9); NEUT % 76.6 % (47.0-73.0); PLATELET COUNT AUTOMATED 114 10*3/uL (130-400); RED BLOOD COUNT 3.06 10*6/uL (4.10-5.10); RED CELL DISTRI WIDTH 14.9 % (0-14.5); WHITE BLOOD COUNT 7.3 10*3/uL (4.8-10.8)
--- NOTE | 2018-11-26 07:42 | NUR ---
Shift chart check completed.
[2018-11-26 07:48] LABS: BUN 25 mg/dl (7-24); CHLORIDE 102 mmol/L (98-107); CREATININE 0.99 mg/dL (0.55-1.02); POTASSIUM 4.4 mmol/L (3.5-5.1); SODIUM 137 mmol/L (136-145)
[2018-11-26 08:00] VITALS: BP 116/62
--- NOTE | 2018-11-26 09:00 | NUR ---
case management visits with patient, she will return to [facility] when medically stable, planner intern will make arrangements, case management will follow
--- NOTE | 2018-11-26 09:45 | NUR ---
PHYSICAL THERAPY Patient was seen this am 1;1 for therapy visit resting supine in bed upon therapist arrival. Patient was alert and fairly pleasant this morning voicing no new c/o's at this time. Patient transfers supine to sit EOB with MIN A, tolerating static EOB sit x several minutes to collect herself. Patient performed sit to stand transfer Min A with use of walker standing support, followed by gait training, walker, CGA, 20'x 1, while demonstrating decreased stride and needing v/c to improve upright posture. Patient returned to bedside chair and remained with call light, tray table, telephone and body alarm for safety. Will continue per POC as tolerated, total treatment time 14 minutes. Horace Gaytan, CIVIL ENGINEER'S AIDE
--- NOTE | 2018-11-26 09:51 | NUR ---
ATTEMPTED TO FEE PATIENT, SHE TOOK 3 BITES OF SCRABBLED EGGS, 1 BITE CREAM OF WHEAT. 3 BITES OF PUDDING WITH CRUSED MEDICATIONS, 2 SIPS OF MILK, REFUSED ANY FURTHER BITES, O2 SATS @ 94% ROOM AIR.
[2018-11-26] MEDS ORDERED: MUCINEX ER600 MG PO (10:57)
[2018-11-26] MEDS ORDERED: NATURE'S BLEND F1 MG PO (10:57)
[2018-11-26] MEDS ORDERED: LEVAQUIN750 M1 PO (10:57)
--- NOTE | 2018-11-26 11:00 | NUR ---
Patient to be discharged back to [facility] today. Nayana Ordoñez OTR/L
[2018-11-26 12:00] VITALS: BP 100/50
--- NOTE | 2018-11-26 12:30 | NUR ---
Discharge instructions reviewed with Jerica Rodriguez at [facility], as well as what happened during stay. Patient is confused, but receptive to ambulance staff. IV removed left lower arm. call placed to family to advise of discharge. ARMIN COLMENARES
--- NOTE | 2018-11-26 15:07 | NUR ---
PHYSICAL THERAPY CO-SIGN I approve of the Physical Therapy notes written above. ZAHIRA CALLE PT,DPT
== END 2018-11-26 12:52 | disposition other institution (70) | DRG 193 ==
LOC: ED 02:57 → 4E 05:09 → EDHOLD 05:09 → 4E 05:39
PROVIDERS: Emergency Medicine Emergency Medical Services; Family Medicine; Internal Medicine; Student in an Organized Health Care Education/Training Program; ADMIT Emergency Medicine
DX: J18.1 Lobar pneumonia, unspecified organism (principal); J96.01 Acute respiratory failure with hypoxia; E44.0 Moderate protein-calorie malnutrition; I50.42 Chronic combined systolic (congestive) and diastolic (congestive) heart failure; I13.0 Hypertensive heart and chronic kidney disease with heart failure and stage 1 through stage 4 chronic kidney disease, or unspecified chronic kidney disease; E87.2 Acidosis; R74.0 Nonspecific elevation of levels of transaminase and lactic acid dehydrogenase [LDH]; F03.90 Unspecified dementia, unspecified severity, without behavioral disturbance, psychotic disturbance, mood disturbance, and anxiety; K42.9 Umbilical hernia without obstruction or gangrene; Z66 Do not resuscitate; Z51.5 Encounter for palliative care; E03.9 Hypothyroidism, unspecified; N18.3 Chronic kidney disease, stage 3 (moderate); R26.2 Difficulty in walking, not elsewhere classified; E78.5 Hyperlipidemia, unspecified; R00.1 Bradycardia, unspecified; D53.9 Nutritional anemia, unspecified; D69.6 Thrombocytopenia, unspecified; R73.9 Hyperglycemia, unspecified; E83.41 Hypermagnesemia; Z91.81 History of falling; Z90.712 Acquired absence of cervix with remaining uterus; Z98.51 Tubal ligation status; Z82.49 Family history of ischemic heart disease and other diseases of the circulatory system; Z79.899 Other long term (current) drug therapy; Z68.29 Body mass index [BMI] 29.0-29.9, adult